=== PATIENT | female | born 1955 | race Caucasian/White ===

== ENCOUNTER 2022-01-29 16:24 | Emergency (ER) | payer BC, MEDICARE ==
[2022-01-29] MEDS ORDERED: ASPI81TA26 PO (16:57)
[2022-01-29] MEDS ORDERED: ATOR1TAB21 PO (16:57)
[2022-01-29] MEDS ORDERED: VITAD400CA PO (16:57)
[2022-01-29] MEDS ORDERED: KETOROLAC 30 MG/ML 1ML VIAL IV ONE (17:00)
[2022-01-29] MEDS ORDERED: METHOCARBAMOL 1,000 MG/10 ML VIAL (J2800) IV ONE (17:00)
[2022-01-29 17:45] VITALS: BP 166/86
[2022-01-29] MEDS ORDERED: KETO10TAB PO (18:55)
[2022-01-29] MEDS ORDERED: METH-1164 PO (18:55)
== END 2022-01-29 19:00 | disposition home or self-care (01) ==
LOC: M ED 16:24 → EDBD 16:24 → M ED 19:00
DX: M62.830 Muscle spasm of back (principal)
CPT/HCPCS: 72110; 80047; 96374; 99284; J1885; J2800